=== PATIENT | female | born 1950 | race Caucasian/White ===

== ENCOUNTER 2023-12-13 22:02 | Emergency (ER) | payer MEDICARE ==
[2023-12-16 15:29] LABS: ANAPLASMA PHAGOCYTOPHILUM PCR Not Detected; BABESIA MICROTI BY PCR Detected; BABESIA SPECIES BY PCR Detected; EHRLICHIA CHAFFEENSIS BY PCR Not Detected; EHRLICHIA EWINGII/CANIS BY PCR Not Detected; EHRLICHIA MURIS-LIKE BY PCR Not Detected
== END 2023-12-14 00:01 | disposition home or self-care (01) ==
LOC: JP.ED 22:02
DX: R00.0 Tachycardia, unspecified (principal); Z91.89 Other specified personal risk factors, not elsewhere classified
CPT/HCPCS: 36415; 87468; 87469; 87484; 87798; 99284